=== PATIENT | male | born 1965 | race Caucasian/White ===

== ENCOUNTER 2016-12-26 08:57 | Emergency (ER) | payer BC ==
--- NOTE | ~2016-12-26 | CR141 ---
[facility] A Service of [facility] & [facility] RADIOLOGY TEXT RESULTS PATIENT: SAVANNAH HERZOG LOCATION: [facility] : [birth year] UNIT #: [id number] AGE: [address]: Izabella Coulter APRN SEX: M ORDER DR: [id number] [facility] [address] [place], [place] [address] [id number] E MR#: [id number] Acc #: [id number] NAME: SAVANNAH HERZOG : 1965 SEX: M STUDY DATE/TIME: 12/26/2016 8:42 UNIT: [facility] ROOM: STUDY DESCRIPTION: CR Hand Min 3 Views Lt Attending Physician: Izabella Coulter A.P.R.N. Ordering Physician: Ed Abdoulaye Muro M.D. Primary Care Physician: River Alcantar M.D. MEDICAL IMAGING REPORT This report is preliminary unless electronic signature is present EXAM Left hand, 3 views. HISTORY 51-year-old male with pain, swelling to PIP joint of third and second digits after falling over a rooster. COMPARISON STUDIES No comparisons. FINDINGS There is soft tissue swelling of the index finger. There is no evidence of fracture. No dislocation. IMPRESSION Soft tissue swelling of the index finger, otherwise unremarkable. Dictated by... Gene Rivera M.D. THIS IS AN ELECTRONICALLY VERIFIED REPORT Gene Rivera M.D. at 12/26/2016 4:32 PM CATINA/red TD: 12/26/2016 11:35 JOB #: [id number] MEDICAL IMAGING REPORT Page 1 of 1 COPY
[~2016-12-26 08:57] MED LIST: ACCUPRIL PO; ALBUTEROL17 GM INH; AMLODIPINE BESYL5 MG PO; ASPIRIN81 M1 PO; BAYER CHEWABLE81 MG PO; CHANTIX PO; CIPRO PO; DARVOCET-N 1001 TAB PO; FLEXERIL10 M1 PO; FLOMAX0.4 M1; FLOMAX0.4 M1 DOB; FLOMAX0.4 M1 PO; HYDROCODON-ACE1 EAC4 PO; KETOPROFEN PO; LEVOXYL75 MC1 PO; LIPITOR PO; LORTAB 10/500 T1 TAB PO; MAG-OXIDE400 MG PO; PERCOCET 7.5/321 TAB PO; PERCOCET5/325 PO; PYRIDIUM100 MG PO; SYNTHROID PO; SYNTHROID175 MCG PO; SYNTHROID300 MCG PO; TYLOX 5/500 CAP1 CAP PO; VICODIN PO; ZOFRAN ODT4 MG PO
== END 2016-12-26 10:05 | disposition home or self-care (01) ==
LOC: CED 08:57
DX: S63.611A Unspecified sprain of left index finger, initial encounter (principal); I10 Essential (primary) hypertension; I48.91 Unspecified atrial fibrillation; J44.9 Chronic obstructive pulmonary disease, unspecified; Z88.8 Allergy status to other drugs, medicaments and biological substances; Z79.899 Other long term (current) drug therapy; W19.XXXA Unspecified fall, initial encounter; Y92.009 Unspecified place in unspecified non-institutional (private) residence as the place of occurrence of the external cause
CPT/HCPCS: 29130; 73130; 90471; 90715; 99283

== ENCOUNTER 2017-04-02 13:39 | Emergency (ER) | payer BC ==
--- NOTE | ~2017-04-02 | CR20 ---
[facility] A Service of [facility] & [facility] RADIOLOGY TEXT RESULTS PATIENT: SAVANNAH HERZOG LOCATION: [facility] : 65 UNIT #: [id number] AGE: [address]: Saskia Beckham SEX: M ORDER DR: [id number] [facility] [address] [place], [place] [address] [id number] E MR#: [id number] Acc #: [id number] NAME: SAVANNAH HERZOG : 1965 SEX: M STUDY DATE/TIME: 04/02/2017 14:09 UNIT: [facility] ROOM: STUDY DESCRIPTION: CR Ankle Min 3 Views Lt Attending Physician: Saskia Beckham Pa-C Ordering Physician: Ed Abdoulaye Muro M.D. Primary Care Physician: River Alcantar M.D. MEDICAL IMAGING REPORT This report is preliminary unless electronic signature is present EXAM Left ankle. INDICATIONS Left ankle pain since this morning. No known injury. FINDINGS AP, lateral, and oblique projections of the ankle show satisfactory integrity of the joint mortise with a smooth articular surface. There is no identifiable fracture, dislocation, or radiopaque foreign body. IMPRESSION Normal left ankle. Dictated by... Koko Rivas M.D. THIS IS AN ELECTRONICALLY VERIFIED REPORT Koko Rivas M.D. at 04/03/2017 7:06 AM Kurt TD: 04/02/2017 19:03 JOB #: [id number] MEDICAL IMAGING REPORT Page 1 of 1 COPY
== END 2017-04-02 15:04 | disposition home or self-care (01) ==
LOC: CED 13:39 → CFTX 13:39
DX: M76.62 Achilles tendinitis, left leg (principal); J45.909 Unspecified asthma, uncomplicated; J44.9 Chronic obstructive pulmonary disease, unspecified; Z91.030 Bee allergy status; Z79.899 Other long term (current) drug therapy
CPT/HCPCS: 29540; 73610; 99283

== ENCOUNTER 2017-06-09 14:02 | Emergency (ER) | payer BC ==
[~2017-06-09] VITALS: Ht 180.3 cm; Wt 81.6 kg
--- NOTE | ~2017-06-09 | CR229 ---
[facility] A Service of [facility] & [facility] RADIOLOGY TEXT RESULTS PATIENT: SAVANNAH HERZOG LOCATION: [facility] : 65 UNIT #: [id number] AGE: [address]: RONAL FIORE SEX: M ORDER DR: [id number] [facility] [address] [place], [place] [address] [id number] E MR#: [id number] Acc #: [id number] NAME: SAVANNAH HERZOG : 1965 SEX: M STUDY DATE/TIME: 06/09/2017 16:52 UNIT: [facility] ROOM: STUDY DESCRIPTION: CR Shoulder Min 2 View Lt Attending Physician: Ronal Fiore Aprn Ordering Physician: Ronal Fiore Aprn Primary Care Physician: River Alcantar M.D. MEDICAL IMAGING REPORT This report is preliminary unless electronic signature is present EXAM Left shoulder, 3 views COMPARISON None. INDICATION 51-year-old male with left shoulder pain localizing to the humeral head for 5 days after falling. FINDINGS Left shoulder is anatomically aligned. No evidence of acute fracture. Mild osteophyte formation at the acromioclavicular joint. IMPRESSION No acute fracture or dislocation of the left shoulder. Minimal degenerative change of the left acromioclavicular joint. Dictated by... Savannah Arizmendi M.D. THIS IS AN ELECTRONICALLY VERIFIED REPORT Savannah Arizmendi M.D. at 06/12/2017 11:09 AM TATA/luis TD: 06/10/2017 12:24 JOB #: [id number] MEDICAL IMAGING REPORT Page 1 of 1 COPY
== END 2017-06-09 17:33 | disposition home or self-care (01) ==
LOC: CED 14:02 → CFTX 14:02
DX: S46.012A Strain of muscle(s) and tendon(s) of the rotator cuff of left shoulder, initial encounter (principal); I10 Essential (primary) hypertension; J44.9 Chronic obstructive pulmonary disease, unspecified; Z91.030 Bee allergy status; Z88.8 Allergy status to other drugs, medicaments and biological substances; W19.XXXA Unspecified fall, initial encounter; Y92.009 Unspecified place in unspecified non-institutional (private) residence as the place of occurrence of the external cause
CPT/HCPCS: 73030; 96372; 99283; J1885